=== PATIENT | female | born 1960 | race Hispanic/Latino ===

== ENCOUNTER → 2020-07-25 11:26 | Outpatient (CLI) | payer OTHER, SELFPAY ==
[2020-07-25 12:35] LABS: Creatinine Urine Random 109.5 mg/dL
[2020-07-25 12:40] LABS: Microalbumi Creatinin Ratio Ur 14.6 ug/mg CR (<30); Microalbumin Urine Random 1.6 mg/dL (0-1.6)
[2020-07-25 13:03] LABS: Hemoglobin A1C% w Est Avg Glu 6.3 % (4.0-6.0)
[2020-07-25 13:07] LABS: Alanine Aminotransferase 20 IU/L (<35); Albumin 4.6 g/dL (3.5-5.0); Albumin Globulin Ratio 1.1 (1.0-2.8); Alkaline Phosphatase 68 U/L (38-126); Aspartate Aminotransferase 28 IU/L (14-36); BUN Creatinine Ratio 16.8 (6-22); Bilirubin Total 0.5 mg/dL (0.2-1.3); Blood Urea Nitrogen 16 mg/dL (7-17); Calcium 9.7 mg/dL (8.4-10.2); Carbon Dioxide 30 mmol/L (22-32); Chloride 103 mmol/L (98-107); Cholesterol 302 mg/dL (140-199); Estimated Glomerular Filt Rate 59.8 mL/min (>60); Globulin 4.3 g/dL (1.7-4.1); Glucose 120 mg/dL (80-110); HDL Cholesterol 31 mg/dL (40-60); Potassium 4.1 mmol/L (3.4-5.1); Sodium 140 mmol/L (137-145); Total Protein 8.9 g/dL (6.3-8.2)
[2020-07-25 13:14] LABS: HEMOLYSIS 17 (0-50)
[2020-07-25 13:15] LABS: Triglycerides 996 mg/dL (35-150)
[2020-07-25 13:33] LABS: Free T4, Direct Thyroxine 1.42 ng/dL (0.78-2.19)
[2020-07-25 13:47] LABS: Thyroid Stimulating Hormone 0.949 uIU/mL (0.47-4.68)
== END ==
PROVIDERS: PCP Registered Nurse; Referring Provider Registered Nurse; Visit Provider Registered Nurse
DX: E11.9 Type 2 diabetes mellitus without complications (principal); E05.90 Thyrotoxicosis, unspecified without thyrotoxic crisis or storm; I10 Essential (primary) hypertension; Z83.42 Family history of familial hypercholesterolemia
CPT/HCPCS: 36415; 80053; 80061; 82043; 82570; 83036; 84439; 84443

== ENCOUNTER 2020-09-21 21:24 | Observation (INO) | payer OTHER, MEDICAID, SELFPAY ==
[2020-09-21] VITALS (9 sets, daily range): BP systolic 129–157; BP diastolic 61–87; PULSE 75–83; RESP 16–28; TEMP 36.8; O2SAT 97–99; BMI 36.2
--- NOTE | 2020-09-21 21:25 | ED_ITS ---
HPI - Chest Pain General Chief Complaint: Chest Pain Stated Complaint: chest pain, left side weakness Time Seen by Provider: 09/21/20 21:25 Source: patient and family Mode of arrival: Ambulatory Limitations: no limitations History of Present Illness HPI narrative: 60F nonsmoker with history of HTN and NIDDM presents with family and complaints of chest and back pain since yesterday. She's not a great historian. She has a difficult time describing the quality of pain, but in the end states the chest pain feels pinpoint and stabbing and her back is squeezing. She states both seem to worsen with deep breaths and motion. She has had some mild episodes of dizziness, which is not ongoing. She denies associated symptoms such as nausea, vomiting, diaphoresis. She denies any exertional component. She denies any change in her medications or diet. She states that she had an episode earlier in the day where she thinks maybe her left arm felt a bit tingly but denies any weakness. She denies any trouble with ambulation. She denies any recent trauma or injury. She has no fever with chills. She has had nail ch spenser in her bowel habits such as diarrhea or constipation. She denies any trouble controlling bowel or bladder, nor dysuria, frequency or urgency. She does state that she has [place] the storage [place] yesterday and was lifting heavy boxes complaint: chest pain Onset (ago): day(s) Duration: intermittent Onset: during rest Pain location: right chest Severity: mild Quality: sharp Pain radiation: none Relieving factors: rest and remaining still Exacerbating factors: inspiration Treatments prior to arrival chest pain: none Related Data On Oral Contraceptives: No Home Medications Medication Instructions Recorded Confirmed lancets 30 gauge #100 ea 07/22/20 07/22/20 Previous Rx's Medication Instructions Recorded amlodipine 5 mg tablet 5 mg PO DAILY 90 Days #90 tab 07/22/20 blood sugar diagnostic #50 ea 07/22/20 fenofibrate nanocrystallized 145 145 mg PO DAILY #90 tab 07/22/20 mg tablet hydrocortisone-pramoxine 1 %-1 % 1 applic WA QID PRN #30 g 07/22/20 rectal cream irbesartan 150 mg tablet 150 mg PO DAILY 90 Days #90 tab 07/22/20 linagliptin 5 mg tablet 5 mg PO DAILY #90 tab 07/22/20 carvedilol 3.125 mg tablet 3.125 mg PO BID 90 Days #180 tab 09/05/20 Allergies Allergy/AdvReac Type Severity Reaction Status Date / Time ampicillin Allergy Verified 07/22/20 11:41 bee venom protein (honey bee) Allergy Verified 07/22/20 11:41 cephalexin [Keflex] Allergy Verified 07/22/20 11:41 ibuprofen Allergy Verified 07/22/20 11:41 Penicillins Allergy Verified 07/22/20 11:41 Review of Systems Constitutional Constitutional: Denies chills, Denies fatigue, Denies fever(s), Denies frequent falls, Denies lethargy and Denies weakness Eyes Eyes: Denies change in vision, Denies eye discharge, Denies irritation and Denies loss of vision ENT Ears, Nose, Mouth, and Throat: Denies change in voice, Denies dizziness, Denies neck pain, Denies sore throat and Denies throat swelling Cardiovascular Cardiovascular: Reports chest pain, Denies irregular heart rhythm, Denies lightheadedness, Denies palpitations, Denies dyspnea, Denies dyspnea on exertion and Denies orthopnea Respiratory Respiratory: Denies cough, Denies dyspnea, Denies dyspnea on exertion and Denies wheezing Gastrointestinal Gastrointestinal: Denies abdominal pain, Denies change in bowel habits, Denies diarrhea, Denies nausea and Denies vomiting Musculoskeletal Musculoskeletal: Denies neck pain and Reports numbness Integumentary/Breasts Skin/Breast: Denies pruritus, Denies erythema, Denies rash and Denies wounds Neurologic Neurologic: Denies behavioral changes, Denies confusion, Denies dizziness, Denies frequent falls, Denies loss of vision, Reports numbness and Denies weakness Psychiatric Psychiatric: Denies anxiety, Denies behavioral changes, Denies confusion, Denies depression, Denies homicidal ideation and Denies suicidal ideation Endocrine Endocrine: Denies fatigue, Denies flushing and Denies palpitations Hematologic/Lymphatic Hematologic/Lymphatic: Denies easy bruising Allergic/Immunologic Allergic/Immunologic: Denies urticaria, Denies throat swelling and Denies wheezing Patient History Social History Smoking Status: Never smoker Smoking Status: Never smoker Exam Narrative Exam Narrative: GENERAL: [60] year old patient appears stated age. Well- nourished, well-developed patient, in mild distress. GCS 15 HEAD: Atraumatic. Normocephalic. EYES: Pupils equal round and reactive. Extraocular motions intact. No scleral icterus. No injection or drainage. ENT: Nose without bleeding, purulent drainage. Throat without erythema, tonsillar hypertrophy or exudate. Airway patent. NECK: Trachea midline. Mild tenderness in the paraspinal musculature on the left side. No increased pain with axial loading, no numbness or tingling in left arm with axial loading. CARDIOVASCULAR: Regular rate and rhythm without murmurs, gallops, or rubs. Palpation of anterior chest wall reproduces her chest pain RESPIRATORY: Clear to auscultation. Breath sounds equal bilaterally. No wheezes, rales, or rhonchi. GASTROINTESTINAL: Abdomen soft, non-tender, nondistended. EXTREMITIES: No edema or joint tenderness. BACK: No midline or bony tenderness, no step-offs or crepitance. Able to reproduce her back pain with palpation of the paraspinal musculature right of the midthoracic spine NEURO: AOx3. SKIN: No rash or erythema of visible areas Initial Vital Signs Initial Vital Signs: Vital Signs Temperature 98.2 F 09/21/20 21:39 Pulse Rate 83 09/21/20 21:39 Respiratory Rate 16 09/21/20 21:39 Blood Pressure 157/87 H 09/21/20 21:39 Pulse Oximetry 98 09/21/20 21:39 Scores NIH Stroke Scale Level of Conciousness: Alert, keenly responsive Ask month/age: Answers both questions correctly. Open/close eyes, close hand: Performs both tasks correctly Best gaze horizontal: Normal Visual colbert: No visual loss Facial palsy: Normal symetrical movement Left arm drift: No drift for full 10 sec Right arm drift: No drift for full 10 sec Left leg drift: No drift for full 5 sec Right leg drift: No drift for full 5 sec Limb ataxia: Absent Sensory on face/arms/legs: Mild to moderate sensory loss, can tell touch (Portions of left arm only) Best language: No aphasia, normal Dysarthria: Normal Extinction or inattention: No abnormality Total NIH Stroke scale score: 1 Course Orders Ordered: ED Orders 09/21/20 21:34 XR chest 1V Stat EKG-12 Lead Stat 09/21/20 21:37 Complete Blood Count AUTO DIFF Stat Comprehensive Metabolic Panel Stat D Dimer Stat Lipase Stat NT-proBNP (BNP-Adult 18+) Stat Prothrombin Time INR Stat Troponin & CK Cardiac Panel Stat 09/21/20 21:47 CT head/brain wo con Stat 09/21/20 22:29 CT angio chest abdomen pelvis Stat 09/21/20 23:00 EKG-12 Lead Stat 09/21/20 23:22 Urinalysis and Microscopic Stat Urine Drug Screen, Rapid Stat 09/21/20 23:35 COVID19 Stat Sodium Chloride (Normal Saline 0.9%) 1,000 mls @ 150 mls/hr IV CONT EVE Discontinued Medications Aspirin (Aspirin 81 Mg Chew Tab) 324 mg PO NOW ONE Stop: 09/21/20 21:35 Last Admin: 09/21/20 22:36 Dose: 324 mg Documented by: MAURICIO Diphenhydramine HCl (Diphenhydramine 50 Mg/Ml Vial) 25 mg IV NOW ONE Stop: 09/21/20 22:19 Last Admin: 09/21/20 22:36 Dose: 25 mg Documented by: MAURICIO Sodium Chloride (Normal Saline 0.9%) 1,000 mls @ 1,000 mls/hr IV BOLUS ONE Stop: 09/21/20 23:28 Last Admin: 09/21/20 22:36 Dose: 1,000 mls/hr Documented by: MAURICIO Methylprednisolone (Methylprednisolone 125 Mg/2 Ml Vial) 125 mg IV NOW ONE Stop: 09/21/20 22:19 Last Admin: 09/21/20 22:36 Dose: 125 mg Documented by: MAURICIO Vital Signs Vital signs: Vital Signs - 8 hr 09/21/20 21:39 09/21/20 21:44 09/21/20 22:02 Temperature 98.2 F Pulse Rate 83 83 81 Respiratory Rate 16 23 Blood Pressure 157/87 H Pulse Oximetry 98 98 98 09/21/20 22:03 09/21/20 22:30 09/21/20 22:31 Temperature Pulse Rate 79 79 80 Respiratory Rate 25 H 25 H 26 H Blood Pressure 132/62 129/71 Pulse Oximetry 98 97 98 09/21/20 23:00 09/21/20 23:23 09/21/20 23:30 Temperature Pulse Rate 76 75 75 Respiratory Rate 27 H 28 H 26 H Blood Pressure 143/76 H 131/61 Pulse Oximetry 99 99 99 09/22/20 00:00 09/22/20 00:01 09/22/20 00:12 Temperature Pulse Rate 76 72 83 Respiratory Rate 22 23 24 Blood Pressure 159/79 H 146/78 H Pulse Oximetry 99 100 99 MDM - Chest Pain Lab Data Result diagrams: 09/21/20 21:37 09/21/20 21:37 Labs: Lab Results 09/21/20 09/21/20 09/21/20 Range/Units 21:37 21:37 21:37 WBC 5.2 (4.5-11.0) X10^3/uL RBC 4.32 (4.0-5.2) X10^6/uL Hgb 12.6 (12.0-16.0) g/dL Hct 37.0 (36-46) % MCV 85.6 (80-100) fL MCH 29.2 (26-34) PG MCHC 34.0 (30-36) % RDW 13.4 (11.6-14.8) % Plt Count 331 (150-400) X10^3/uL Neut % (Auto) 34.9 L (50-75) % Lymph % (Auto) 48.9 H (25-40) % [place] % (Auto) 10.8 (3-14) % Eos % (Auto) 3.4 (2-4) % Baso % (Auto) 2.0 (0-2) % Neut # (Auto) 1800 (3434-8854) /uL Lymph # (Auto) 2600 (8492-9752) /uL [place] # (Auto) 600 (0-900) /uL Eos # (Auto) 200 (0-450) /uL Baso # (Auto) 100 (0-100) /uL PT 10.6 (10.1-12.7) SECONDS INR 0.9 (0.9-1.3) D-Dimer 592 H (<230) ng/mL Sodium 140 (137-145) mmol/L Potassium 3.8 (3.4-5.1) mmol/L Chloride 108 H (98-107) mmol/L Carbon Dioxide 27 (22-32) mmol/L BUN 20 H (7-17) mg/dL Creatinine 1.28 H (0.52-1.04) mg/dL Estimated GFR 42.3 L (>60) mL/min BUN/Creatinine Ratio 15.6 (6-22) Glucose 159 H (80-110) mg/dL Calcium 9.3 (8.4-10.2) mg/dL Total Bilirubin 0.2 (0.2-1.3) mg/dL AST 25 (14-36) IU/L ALT 23 (<35) IU/L Alkaline Phosphatase 57 (38-126) U/L Total Creatine Kinase 79 (30-135) U/L CK-MB (CK-2) TNP CK-MB (CK-2) Rel Index TNP Troponin I < 0.012 (0.01-0.034) ng/mL NT-Pro-B Natriuret Pep 33 (<125) pg/mL Total Protein 8.0 (6.3-8.2) g/dL Albumin 4.5 (3.5-5.0) g/dL Globulin 3.5 (1.7-4.1) g/dL Albumin/Globulin Ratio 1.3 (1.0-2.8) Lipase 280 (23-300) U/L U Opiates 300ng/mL cut (Negative) Ur Oxycodone Screen (Negative) Urine Methadone Screen (Negative) Ur Barbiturates Screen (Negative) U Tricyclic Antidepress (Negative) Ur Phencyclidine Scrn (Negative) Ur Amphetamines Screen (Negative) U Methamphetamines Scrn (Negative) Ur MDMA Scrn (Ecstasy) (Negative) U Benzodiazepines Scrn (Negative) Urine Cocaine Screen (Negative) U Marijuana (THC) Screen (Negative) SARS-CoV-2 (PCR) (Negative) 09/21/20 09/22/20 Range/Units 23:35 00:11 WBC (4.5-11.0) X10^3/uL RBC (4.0-5.2) X10^6/uL Hgb (12.0-16.0) g/dL Hct (36-46) % MCV (80-100) fL MCH (26-34) PG MCHC (30-36) % RDW (11.6-14.8) % Plt Count (150-400) X10^3/uL Neut % (Auto) (50-75) % Lymph % (Auto) (25-40) % [place] % (Auto) (3-14) % Eos % (Auto) (2-4) % Baso % (Auto) (0-2) % Neut # (Auto) (5138-7645) /uL Lymph # (Auto) (7153-3002) /uL [place] # (Auto) (0-900) /uL Eos # (Auto) (0-450) /uL Baso # (Auto) (0-100) /uL PT (10.1-12.7) SECONDS INR (0.9-1.3) D-Dimer (<230) ng/mL Sodium (137-145) mmol/L Potassium (3.4-5.1) mmol/L Chloride (98-107) mmol/L Carbon Dioxide (22-32) mmol/L BUN (7-17) mg/dL Creatinine (0.52-1.04) mg/dL Estimated GFR (>60) mL/min BUN/Creatinine Ratio (6-22) Glucose (80-110) mg/dL Calcium (8.4-10.2) mg/dL Total Bilirubin (0.2-1.3) mg/dL AST (14-36) IU/L ALT (<35) IU/L Alkaline Phosphatase (38-126) U/L Total Creatine Kinase (30-135) U/L CK-MB (CK-2) CK-MB (CK-2) Rel Index Troponin I (0.01-0.034) ng/mL NT-Pro-B Natriuret Pep (<125) pg/mL Total Protein (6.3-8.2) g/dL Albumin (3.5-5.0) g/dL Globulin (1.7-4.1) g/dL Albumin/Globulin Ratio (1.0-2.8) Lipase (23-300) U/L U Opiates 300ng/mL cut Negative (Negative) Ur Oxycodone Screen Negative (Negative) Urine Methadone Screen Negative (Negative) Ur Barbiturates Screen Negative (Negative) U Tricyclic Antidepress Negative (Negative) Ur Phencyclidine Scrn Negative (Negative) Ur Amphetamines Screen Negative (Negative) U Methamphetamines Scrn Negative (Negative) Ur MDMA Scrn (Ecstasy) Negative (Negative) U Benzodiazepines Scrn Negative (Negative) Urine Cocaine Screen Negative (Negative) U Marijuana (THC) Screen Negative (Negative) SARS-CoV-2 (PCR) Negative (Negative) Imaging Data CT scan - head: Radiologist's Impression: NAP CT scan - chest: Radiologist's Impression: CTA Chest/Abd/Pelvis No PE or Dissection ECG Data Attestation: I personally reviewed and interpreted this ECG as follows: Prior ECG tracings: not available for review Interpretation: Sinus arrhythmia, rate 86. Normal appearing WA, not measured due to some artifact, presumably why machine read as Afib. . No ST Segmental elevation or depression. Occasional PAC. No T wave abnormality MDM Narrative Medical decision making narrative: 60F HTN/DM with chest pain, back pain, dizziness, and L arm numbness. CTA to rule out dissection/PE given chest/back pain with neuro symptoms. No findings. She has vague dizziness which is without nystagmus or classic peripheral symptoms such as positional/fatigueable. She has risk for TIA/CVA and a central type dizziness with L arm numbness. She will require hospitalization for further evaluation with MRI and possible echo Discharge Plan Departure Patient Disposition: Admitted as Observation Clinical Impression: Brain TIA Chest pain Qualifiers: Chest pain type: chest pain on breathing Qualified Code(s): R07.1 - Chest pain on breathing Admit Date/Time: 09/22/20 00:28 Admit Provider: Allison Long
--- NOTE | 2020-09-21 21:34 | DI.RAD.S_ITS ---
PROCEDURE: XR CHEST 1V INDICATIONS: chest / back pain TECHNIQUE: One view of the chest was acquired. COMPARISON: [facility], CT, CT ANGIO CHEST ABDOMEN PELVIS, 09/21/2020, 22:52. FINDINGS: Surgical changes and devices: None. Lungs and pleura: Lungs are clear. No pleural effusions or pneumothorax. Mediastinum: Mediastinal contours appear normal. Heart size is normal. Bones and chest wall: No suspicious bony lesions. Overlying soft tissues appear unremarkable. IMPRESSION: No acute cardiopulmonary abnormality. This report is concordant with the overnight preliminary interpretation. Dictated by: Jose Alejandro Guevara M.D. on 09/22/2020 at 6:53 Approved by: Jose Alejandro Guevara M.D. on 09/22/2020 at 6:55
--- NOTE | 2020-09-21 21:47 | DI.CT.S_ITS ---
PROCEDURE: CT HEAD/BRAIN WO CON INDICATIONS: dizzy, left arm numbness TECHNIQUE: Noncontrast 4.5 mm thick angled axial sections acquired from the foramen magnum to the vertex, with coronal and sagittal reformats. For radiation dose reduction, the following was used: automated exposure control, adjustment of mA and/or kV according to patient size. COMPARISON: None. FINDINGS: Image quality: Excellent. CSF spaces: Basal cisterns are patent. No extra-axial fluid collections. Ventricles are normal in size and shape. Brain: No midline shift. No intracranial masses or hemorrhage. Smith-white matter interface is normal. Skull and face: Calvarium and visualized facial bones are intact, without suspicious lesions. Sinuses: Visualized sinuses and mastoids are clear. IMPRESSION: 1. No acute intracranial process. Dictated by: Orquidea Menjivar M.D. on 09/21/2020 at 22:02 Approved by: Orquidea Menjivar M.D. on 09/21/2020 at 22:02
[2020-09-21 22:14] LABS: Add Manual Diff / Slide Review NO; Basophils Absolute Auto 100 /uL (0-100); Eosinophils Absolute Auto 200 /uL (0-450); Eosinophils Percent Auto 3.4 % (2-4); Hemoglobin 12.6 g/dL (12.0-16.0); Lymphocytes Absolute Auto 2600 /uL (1100-4500); Lymphocytes Percent Auto 48.9 % (25-40); Mean Corpuscular Hemoglobin 29.2 PG (26-34); Mean Corpuscular Volume 85.6 fL (80-100); Monocytes Absolute Auto 600 /uL (0-900); Monocytes Percent Auto 10.8 % (3-14); Neutrophils Absolute Auto 1800 /uL (1500-7000); Neutrophils Percent Auto 34.9 % (50-75); Platelet Count 331 X10^3/uL (150-400); Red Blood Cell Count 4.32 X10^6/uL (4.0-5.2); Red Cell Distribution Width 13.4 % (11.6-14.8); White Blood Cell Count 5.2 X10^3/uL (4.5-11.0)
[2020-09-21 22:16] LABS: INR 0.9 (0.9-1.3); Prothrombin Time 10.6 SECONDS (10.1-12.7)
[2020-09-21 22:19] LABS: D Dimer 592 ng/mL (<230)
[2020-09-21 22:21] LABS: Alanine Aminotransferase 23 IU/L (<35); Albumin 4.5 g/dL (3.5-5.0); Albumin Globulin Ratio 1.3 (1.0-2.8); Alkaline Phosphatase 57 U/L (38-126); Aspartate Aminotransferase 25 IU/L (14-36); BUN Creatinine Ratio 15.6 (6-22); Bilirubin Total 0.2 mg/dL (0.2-1.3); Blood Urea Nitrogen 20 mg/dL (7-17); Calcium 9.3 mg/dL (8.4-10.2); Carbon Dioxide 27 mmol/L (22-32); Chloride 108 mmol/L (98-107); Creatine Kinase 79 U/L (30-135); Estimated Glomerular Filt Rate 42.3 mL/min (>60); Globulin 3.5 g/dL (1.7-4.1); Glucose 159 mg/dL (80-110); HEMOLYSIS < 15 (0-50); Lipase 280 U/L (23-300); Potassium 3.8 mmol/L (3.4-5.1); Sodium 140 mmol/L (137-145)
--- NOTE | 2020-09-21 22:29 | DI.CT.S_ITS ---
PROCEDURE: CT ANGIO CHEST ABDOMEN PELVIS INDICATIONS: chest, back pain, left arm tingling TECHNIQUE: Precontrast 5 mm thick sections acquired from the lung apices to the iliac crests. After the administration of intravenous contrast, 2.5 mm thick sections again acquired from the lung apices to the iliac crests. Maximum intensity projection (MIP) oblique sagittal and coronal reformats were then acquired. For radiation dose reduction, the following was used: automated exposure control. COMPARISON: None. FINDINGS: Image quality: Excellent. AORTA: No acute aortic syndrome. No dissection. No aneurysm. No central pulmonary embolism. CHEST: Lungs and pleura: No acute airspace opacities. No pleural effusions or pneumothorax. Central and peripheral airways are patent and normal in caliber. Mediastinum: Heart size is normal. Mild aortic valvular calcification. Mitral annular calcification. No pericardial effusion. No mediastinal or hilar adenopathy by size criteria. Central pulmonary arteries are normal in size. Esophagus is normal in caliber. No hiatal hernias. Bones and chest wall: No axillary alejandro plaque in the abdominal aorta. opathy by size criteria. Thyroid gland is unremarkable. No suspicious bony lesions. No vertebral body compression fractures. ABDOMEN: Vasculature: Mild calcified atherosclerotic plaque in the abdominal aorta. Celiac trunk and mesenteric arteries are patent. Renal arteries are duplicated bilaterally and patent. Solid organs: Liver is within normal limits in size. Hepatic steatosis. Gallbladder is unremarkable. Biliary system is non dilated. Pancreas enhances normally. Spleen is within normal limits. No adrenal nodules. Both kidneys are normal in size and enhancement, without hydronephrosis. Question of punctate nonobstructing left kidney stone, (). A few small simple cysts in the right kidney. Peritoneum and bowel: No free fluid or air. Food residue in the stomach. Stomach is not significantly distended. Bowel loops are normal in caliber and wall thickness. Normal appendix. Diverticulosis. Nodes and vessels: No retroperitoneal or mesenteric adenopathy by size criteria. Inferior vena cava is normal in morphology. Miscellaneous: No ventral hernias. PELVIS: Genitourinary: Bladder wall thickness is normal. Increased conspicuity of the endometrium. Question of uterine fibroids. Miscellaneous: No inguinal hernias or adenopathy. No ventral hernias. Bones: Sclerotic focus in the T6 vertebral body, (). Extensive degenerative change at L4-L5. No vertebral body compression fractures. IMPRESSION: 1. No acute aortic syndrome. No pulmonary embolism. 2. No acute airspace opacity. No pleural effusion. 3. No acute abnormality in the abdomen or pelvis identified. No free fluid. 4. Hepatic steatosis. 5. Increased conspicuity of the endometrium. This could be due to endometrial thickening in this postmenopausal patient. -Consider further evaluation with nonemergent pelvic ultrasound. 6. Sclerotic focus in the T6 vertebral body. Favor bone island over metastatic lesion. No significant discrepancy with the overnight preliminary interpretation. Dictated by: Jose Alejandro Guevara M.D. on 09/22/2020 at 6:55 Approved by: Jose Alejandro Guevara M.D. on 09/22/2020 at 7:15
[2020-09-21 22:33] LABS: NT-proBNP (BNP-Adult 18+) 33 pg/mL (<125); Troponin I < 0.012 ng/mL (0.01-0.034)
[2020-09-21] MEDS: diphenhydrAMINE 50 MG/ML VIAL 25 MG IV (22:36)
[2020-09-21] MEDS: ASPIRIN 81 MG CHEW TAB 324 MG PO (22:36)
[2020-09-21] MEDS: methylPREDNISolone 125 MG/2 ML VIAL IV (22:36)
[2020-09-21] MEDS: SODIUM CHLORIDE 0.9% 1,000 ML 1000 ML IV (22:36)
--- NOTE | 2020-09-21 22:49 | PC.NURSE ---
Pt reports remote history of reaction to IV contrast 40 years ago. Pt premedicated for CTA per order.
[2020-09-21 23:58] LABS: COVID19 -Nasal RAPID Negative (Negative)
[2020-09-22] VITALS (14 sets, daily range): BP systolic 123–159; BP diastolic 63–90; PULSE 72–102; RESP 15–24; TEMP 36.4; O2SAT 96–100; BMI 36.2
--- NOTE | 2020-09-22 | DI.MRI.S_ITS ---
PROCEDURE: MR STROKE Pre- and post-contrast brain MRI, non-contrast brain MR angiogram, pre- and postcontrast neck MR angiogram INDICATIONS: left arm numbness concernig for radiculopathy TECHNIQUE: Brain: Noncontrast axial T1 spin echo, axial T2 fast spin echo, sagittal and axial FLAIR, coronal T2 fast spin echo, axial gradient echo, axial diffusion and ADC through the brain. After the administration of contrast, axial 3D VIBE of the cranial vasculature and brain. Brain MRA: Non-contrast 3-D time of flight MR angiogram, with multiple ytpdpuj-yofmdktnk-nksghnzllb (MIP) reformats performed. Neck MRA: Axial and sagittal TruFISP through the neck. Coronal dynamic MR angiogram during administration of contrast in the arterial and venous phases, with 3-dimenstional qyoilum-ptoonarrx-uxleoaatik (MIP) reformats constructed from subtraction images. COMPARISON: [facility], CT, CT HEAD/BRAIN WO CON, 09/21/2020, 21:46. [facility], MR, MR CERVICAL SPINE WO CON, 09/22/2020, 9:35. FINDINGS: Image quality: This examination is limited by involuntary motion artifact. Study is also limited by bolus timing. Motion artifact can be seen on the neck MR angiogram images. BRAIN: CSF spaces: Ventricles are normal in size and shape. Basal cisterns are patent. No extra-axial fluid collections. Brain: No intracranial bleeds or mass effects. Brain parenchymal volume loss is seen. Chronic small vessel ischemic changes are seen. Smith-white matter interface is normal. Diffusion weighted images show no acute ischemic insults. Brainstem appears normal. Normal intravascular flow voids are present. No abnormal intracranial enhancement. Skull and face: Calvarial marrow signal is normal. Orbits appear normal. Incidental note is made of hyperostosis frontalis. This is not considered to be pathologic in a woman of this age. Sinuses: Sinuses and mastoids are clear. BRAIN MR ANGIOGRAM: Anterior circulation: Intracranial internal carotid arteries are normal in size and enhancement. 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 This is considered to be a normal developmental variant of the [place] of [place], of typically no clinical consequence. The flow within the paired anterior cerebral arteries is otherwise normal and symmetric. The flow within the middle cerebral arteries is normal and symmetric. The anterior communicating artery is seen. No stenoses, occlusions, or aneurysms. Posterior circulation: The visualized portions of the vertebral arteries demonstrate normal caliber, and join to form a normal appearing basilar artery. The flow within the posterior cerebral arteries is normal and symmetric. No stenoses, occlusions, or aneurysms. NECK MR ANGIOGRAM: Carotids: Great vessels demonstrate a conventional anatomy as they arise from the aortic arch. The origins of the common carotid arteries appear patent. The calibers and courses of both common carotid arteries are normal. The bifurcation regions appear normal bilaterally. The internal carotid arteries demonstrate normal course and caliber. Posterior circulation: The origins of the vertebral arteries are not well seen. More superior portions of both vertebral arteries demonstrate normal course and caliber. Miscellaneous: Subclavian arteries appear patent. Pre-contrast images through the neck show no soft tissue abnormalities. IMPRESSION: BRAIN MRI: No findings of acute or subacute infarction can be seen. Note is made of age-appropriate brain parenchymal volume loss and chronic small vessel ischemic changes. No masses or abnormal enhancement can be seen. BRAIN MR ANGIOGRAM: No significant intracranial arterial abnormality is seen. 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 NECK MR ANGIOGRAM: Limited study of the neck, yet without a hemodynamically significant stenosis seen. Dictated by: Sulaiman Hill M.D. on 09/22/2020 at 10:00 Approved by: Sulaiman Hlil M.D. on 09/22/2020 at 10:03
--- NOTE | 2020-09-22 | DI.MRI.S_ITS ---
PROCEDURE: MR CERVICAL SPINE WO CON INDICATIONS: left arm numbness concerning for radiculopathy TECHNIQUE: Noncontrast sagittal T1 spin echo and T2 fast spin echo, sagittal STIR, foraminal oblique sagittal T2 fast spin echo, and axial gradient echo or T2 fast spin echo through the cervical spine. COMPARISON: [facility], CT, CT HEAD/BRAIN WO CON, 09/21/2020, 21:46. FINDINGS: Image quality: This examination is limited by involuntary motion artifact. Alignment and Curvature: There is straightening of the normal cervical lordosis. Bone Marrow: Marrow demonstrates normal overall signal. Spinal Cord: Visualized spinal cord has normal size and signal. No cerebellar tonsillar herniation. Paraspinous Soft Tissues: No paravertebral masses. Prevertebral soft tissues are normal in thickness. C2-C3: This examination is limited by involuntary motion artifact. Mild disc bulge is seen, with a central/right disc protrusion. There is moderate to prominent right-sided and moderate left-sided facet hypertrophy. There is at least moderate left-sided and [id number] right-sided neural foraminal narrowing seen. Moderate central canal narrowing is seen. C3-C4: There is at least moderate loss of disc height and disc signal seen. Moderate to prominent disc osteophyte complex is seen, with a prominent disc osteophyte extrusion, as on series 4, image 16 and on series 3 image 8. Moderate facet joint hypertrophy is seen. There is moderate to severe bilateral neural foraminal narrowing seen. Moderate to severe central canal narrowing is seen, with associated ventral cord flattening. C4-C5: Mild loss of disc height is seen. Loss of disc signal is seen. Moderate generalized disc osteophyte complex is seen. There is moderate right-sided and mild left-sided facet hypertrophy seen. There is moderate to severe bilateral neural foraminal narrowing seen. At least moderate central canal narrowing is seen. There is associated mass effect upon the ventral spinal cord. C5-C6: Raqg-ce-sibztpvl loss of disc height and disc signal can be seen. Moderate prominent disc osteophyte complex is seen, with a prominent central/left disc osteophyte extrusion, with inferior migration of the disc material. Mild facet joint hypertrophy is seen. Moderate to severe bilateral neural foraminal narrowing can be seen. There is severe central canal narrowing, with associated ventral cord flattening, as on series 4, images 24 and 25. C6-C7: Moderate loss of disc height is seen. Loss of disc signal is seen. There is at least moderate disc osteophyte complex seen. There is a central/left disc osteophyte protrusion. Mild to moderate facet hypertrophy is seen. There is moderate to severe left-sided and at least moderate right-sided neural foraminal narrowing. There is at least moderate central canal narrowing. There is associated mass effect upon the ventral spinal cord. C7-T1: The disc height is well-preserved. Loss of disc signal is seen at this level. Moderate generalized disc osteophyte complex is seen. There is at least moderate left-sided and [id number]-apkvppin right-sided neural foraminal narrowing seen. Mild to moderate central canal narrowing is seen. IMPRESSION: Multiple levels of prominent cervical spine degenerative changes are seen. There is a C5-C6 disc extrusion, with inferior migration of the disc material. Several levels of prominent central canal narrowing can be seen, with ventral cord flattening. Dictated by: Sulaiman Hill M.D. on 09/22/2020 at 9:15 Approved by: Sulaiman Hill M.D. on 09/22/2020 at 9:25
[2020-09-22 00:17] LABS: Bacteria Urine None Seen; RBC Urine None Seen (0-5/HPF); WBC Urine None Seen (0-5/HPF)
--- NOTE | 2020-09-22 00:22 | PC.NURSE ---
Pt assisted to BR via WC; ambulated back to room with stand by assist.
[2020-09-22 00:25] LABS: UR Morphine/Opiate cutoff 300 Negative (Negative); Ur Creatinine 20 (Normal); Ur Specific Gravity 1.025 (Normal); Urine Amphetamines Negative (Negative); Urine Barbiturates Negative (Negative); Urine Benzodiazepines Negative (Negative); Urine Cocaine Negative (Negative); Urine MDMA Negative (Negative); Urine Methadone Negative (Negative); Urine Methamphetamines Negative (Negative); Urine Oxycodone Negative (Negative); Urine Phencyclidine Negative (Negative); Urine Tetrahydrocannabinol Negative (Negative); Urine Tricyclic Antidepressant Negative (Negative); Urine pH 5 (Normal)
[2020-09-22 00:35] LABS: Appearance Urine UA CLEAR; Bilirubin Urine UA NEGATIVE (NEGATIVE); Color Urine UA YELLOW; Glucose Urine UA NEGATIVE (Negative); Ketones Urine UA NEGATIVE (NEGATIVE); Leukocyte Esterase Urine UA NEGATIVE (NEGATIVE); Nitrite Urine UA NEGATIVE (Negative); Occult Blood Urine UA NEGATIVE (Negative); Protein Urine UA NEGATIVE (Negative); Specific Gravity Urine UA 1.015 (1.000-1.035); Urobilinogen Urine UA 0.2 E.U./dL (0.2)
[2020-09-22 00:39] LABS: Culture Indicated Urine Cult Not Indicated; Urine Comments Microscopic Normal
--- NOTE | 2020-09-22 00:43 | PC.NURSE ---
Report given to Diamante, 2nd floor RN
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
[2020-09-22 01:49] LABS: Magnesium 1.8 mg/dL (1.6-2.3)
--- NOTE | 2020-09-22 03:09 | PC.NURSE ---
Admitted to room 218 R/O TIA, pt. alert & oriented x4. NO C/O lt. hand numbness, no dizziness, no C/O headache. Oriented to her room, showed her how to use her call light, TV & bed controls. Instructed not to get OOB without any assistance, denies any fall for the past 3 months. Call light within reach, will cont. POC & monitor.
[2020-09-22 03:37] LABS: Hemoglobin A1C% w Est Avg Glu 6.5 % (4.0-6.0)
[2020-09-22 04:00] LABS: BUN Creatinine Ratio 17.6 (6-22); Blood Urea Nitrogen 19 mg/dL (7-17); Calcium 9.2 mg/dL (8.4-10.2); Carbon Dioxide 26 mmol/L (22-32); Chloride 107 mmol/L (98-107); Estimated Glomerular Filt Rate 51.4 mL/min (>60); Glucose 228 mg/dL (80-110); HEMOLYSIS < 15 (0-50); Potassium 4.4 mmol/L (3.4-5.1); Sodium 137 mmol/L (137-145)
[2020-09-22 04:03] LABS: Add Manual Diff / Slide Review NO; Basophils Absolute Auto 0 /uL (0-100); Basophils Percent Auto 0.9 % (0-2); Eosinophils Absolute Auto 0 /uL (0-450); Eosinophils Percent Auto 0.2 % (2-4); Hematocrit 35.7 % (36-46); Hemoglobin 11.9 g/dL (12.0-16.0); Lymphocytes Absolute Auto 1200 /uL (1100-4500); Lymphocytes Percent Auto 24.8 % (25-40); Mean Corpuscular HGB Conc 33.4 % (30-36); Mean Corpuscular Hemoglobin 28.8 PG (26-34); Mean Corpuscular Volume 86.2 fL (80-100); Monocytes Absolute Auto 100 /uL (0-900); Monocytes Percent Auto 1.2 % (3-14); Neutrophils Absolute Auto 3600 /uL (1500-7000); Neutrophils Percent Auto 72.9 % (50-75); Platelet Count 305 X10^3/uL (150-400); Red Blood Cell Count 4.14 X10^6/uL (4.0-5.2); Red Cell Distribution Width 13.2 % (11.6-14.8); White Blood Cell Count 4.9 X10^3/uL (4.5-11.0)
[2020-09-22 04:11] LABS: Troponin I < 0.012 ng/mL (0.01-0.034)
[2020-09-22] MEDS: INSULIN ASPART 100 UNIT/ML INSULN PEN SUBCUT ×2 (09:24→12:16)
[2020-09-22] MEDS: AMLODIPINE 5 MG TABLET PO (09:25)
[2020-09-22] MEDS: carvediloL 3.125 MG TABLET PO (09:26)
[2020-09-22] MEDS: ASPIRIN EC 81 MG TABLET PO (09:26)
[2020-09-22] MEDS: FENOFIBRATE 145 MG TABLET PO (09:28)
[2020-09-22] MEDS: ENOXAPARIN 40 MG/0.4 ML SYRINGE SUBCUT (09:28)
[2020-09-22] MEDS: IRBESARTAN 150 MG TABLET PO (09:29)
[2020-09-22] MEDS: SODIUM CHLORIDE 0.9% FLUSH 10 ML IV (09:29)
--- NOTE | 2020-09-22 09:50 | PC.NURSE ---
Patient A/O x4, denies numbness or tingling in the extremities, denies SOB or chest pain. Reports headache, usually managed with aspirin which was given. Tele on, patient is tachy, pulses equal patient voiding independently in the restroom, reports last BM was 09/21, denies N/V. Patient transferred to MRI via wheelchair at 0940
--- NOTE | 2020-09-22 10:29 | CM.DANOTE ---
Addendum entered by Jennifer Moore 09/22/20 10:47: Patient reports that she drives and does not utilize DME at baseline. Original Note: DCP Assessment: 60yo female admitted to hospital for chest pain and left sided weakness, PCP is Jossy Ackerman. Primary payer sources is [facility]. CUTTING AND BONING SUPERVISOR and Student met with patient in room. Patient is alert and oriented and has a prior history of independence with ADL's. She does have local support system as her 4 sons live in the local geographic area. She reported that will be able to return to living with family with future plans to seek other housing options in the [facility] as her current housing situation is safe but not ideal. Will provide patient with Senior resource guide and listings of supported living facilities in the [facility]. Recommended D/C to home with family. P: Home when medically stable CM team will continue to follow for needs. Juan Gray (CUTTING AND BONING SUPERVISOR Student) Jennifer Moore (CUTTING AND BONING SUPERVISOR) Discharge Planning/Care Management CM Discharge Assessment Start: 09/22/20 10:18 Freq: Status: Active Protocol: Document 09/22/20 10:21 KJS (Rec: 09/22/20 10:28 [id number]) Discharge Planning Assessment Assigned Finish Opener Juan Gray CUTTING AND BONING SUPERVISOR Student Contact Information [place] (Son) Phone# Advance Directives? No Advance Directives on File No History Provided By Patient,Medical Record Has Patient been admitted in last 30 No days? Prior Living Arrangements Apartment/Condo Household Members children Type of transporation used prior to Drives own vehicle admit Independent with ADL's Yes Is patient alert and oriented? Yes Barriers to Discharge No Discharge Plan Home Transportation Arrangement Son will provide transportation Additional Comment Provided information for housing options in the [facility] and senior resources guide Review Status In Process Next Review Type Continued Stay Review Document 09/22/20 10:29 KJS (Rec: 09/22/20 10:29 [id number]) Discharge Planning Assessment Assigned Finish Opener Juan Gray CUTTING AND BONING SUPERVISOR Student Contact Information [place] (Son) Phone# ( [phone] Advance Directives? No Advance Directives on File No History Provided By Patient,Medical Record Has Patient been admitted in last 30 No days? Prior Living Arrangements Apartment/Condo Household Members children Type of transporation used prior to Drives own vehicle admit Willing to Return to Facility? No Independent with ADL's Yes Is patient alert and oriented? Yes Barriers to Discharge No Discharge Plan Home Transportation Arrangement Son will provide transportation Additional Comment Provided information for housing options in the [facility] and senior resources guide Review Status In Process Next Review Type Continued Stay Review
[2020-09-22 12:01] LABS: Troponin I < 0.012 ng/mL (0.01-0.034)
[2020-09-22] MEDS: INFLUENZA VACCINE 0.5 ML SYRINGE IM (14:59)
--- NOTE | 2020-09-22 16:17 | PC.NURSE ---
Evening Shift/Discharge Note- Patient d/c'ed home. Discharge instructions and educations reviewed with patient and signed. IV line removed and bandage applied. Tele monitor removed. Patient dressed self and packed up all personal belongings. Patient left via wheelchair with all personal belongings and son at her side to CDP car at 1619.
== END 2020-09-22 16:19 | disposition home or self-care (01) ==
LOC: ED 09-22 00:27 → AC 09-22 00:29
PROVIDERS: Admitting Provider Nurse Practitioner Family; Emergency Provider Emergency Medicine; PCP Registered Nurse; Referring Provider Emergency Medicine; Visit Provider Nurse Practitioner Family
DX: R07.9 Chest pain, unspecified (principal); R53.1 Weakness; R42 Dizziness and giddiness; M54.9 Dorsalgia, unspecified; I10 Essential (primary) hypertension; E78.5 Hyperlipidemia, unspecified; E78.1 Pure hyperglyceridemia; E11.9 Type 2 diabetes mellitus without complications; Z79.84 Long term (current) use of oral hypoglycemic drugs; G47.30 Sleep apnea, unspecified; Z20.822 Contact with and (suspected) exposure to COVID-19
CPT/HCPCS: 36415; 70450; 70548; 70553; 71045; 71275; 72141; 74174; 80048; 80053; 80305; 81001; 82550; 82962; 83036; 83690; 83735; 83880; 84484; 85025; 85379; 85610; 87635; 90471; 90656; 93005; 93010; 94762; 96361; 96372; 96374; 96375; 99283; 99284; 99291; 99292; C9803; G0378; J1200; J1650; J2930; Q2038; Q9967

== ENCOUNTER → 2020-09-23 12:33 | Outpatient (CLI) | payer OTHER, MEDICAID, SELFPAY ==
[2020-09-22 01:22] VITALS: BMI 36.2
== END ==
PROVIDERS: PCP Registered Nurse; Referring Provider Registered Nurse; Visit Provider Registered Nurse
DX: M85.852 Other specified disorders of bone density and structure, left thigh (principal); Z78.0 Asymptomatic menopausal state
CPT/HCPCS: 77080

== ENCOUNTER → 2020-10-07 09:59 | Outpatient (CLI) | payer OTHER, MEDICAID, SELFPAY ==
[2020-09-30 11:05] VITALS: BMI 36.2
--- NOTE | 2020-10-07 10:00 | DI.US.S_ITS ---
PROCEDURE: US PELVIC COMPLETE INDICATIONS: THICKENED ENDOMETRIUM TECHNIQUE: Real-time scanning was performed of the pelvic organs, with image documentation. Additional endovaginal scanning was necessary due to incomplete visualization of the adnexal and endometrial structures by transabdominal scanning. COMPARISON: [facility], CT, CT ANGIO CHEST ABDOMEN PELVIS, 09/21/2020, 22:52. FINDINGS: Uterus: Uterus is normal in size at 7.6 by 5.8 x 6 x 3 cm. The endometrium measures 27 mm in combined thickness. The uterus demonstrates a heterogeneous appearance, with cystic spaces. No jason abnormal vascularity can be seen. Ovaries: The right ovary measures 1.7 x 1.5 x 1.7 cm and is overall not well seen. The left ovary is not well seen. No adnexal masses are seen on either side. Other: No pathologic free abdominal or pelvic fluid. IMPRESSION: The endometrial stripe is grossly thickened at 27 mm in this patient with a given history of postmenopausal bleeding. Differential diagnosis includes endometrial neoplasm and endometrial hyperplasia. Recommend correlation with endometrial histology, as clinically appropriate. Dictated by: Sulaiman Hill M.D. on 10/07/2020 at 9:40 Approved by: Sulaiman Hill M.D. on 10/07/2020 at 9:48
== END ==
PROVIDERS: PCP Registered Nurse; Referring Provider Registered Nurse; Visit Provider Registered Nurse
DX: R93.89 Abnormal findings on diagnostic imaging of other specified body structures (principal); N95.0 Postmenopausal bleeding
CPT/HCPCS: 76830; 76856

== ENCOUNTER → 2020-12-03 14:53 | Outpatient (CLI) | payer OTHER, MEDICAID, SELFPAY ==
[2020-09-30 11:05] VITALS: BMI 36.2
--- NOTE | 2020-12-03 14:55 | DI.RAD.S_ITS ---
PROCEDURE: XR FOOT LT MIN 3V INDICATIONS: painful joints and swelling TECHNIQUE: 3 views of the foot were acquired. COMPARISON: None. FINDINGS: Bones: No fractures or dislocations. Hallux valgus deformity noted. Large dorsal and plantar calcaneal bone spurs. Moderate midfoot osteoarthritis. Moderate 1st MCP joint osteoarthritis. No osseous erosive changes or periosteal reaction. Soft tissues: Large medial bunion noted with heterotopic calcifications.. No tibiotalar joint effusion. Achilles tendon appears normal. Foot soft tissue swelling noted. No soft tissue gas. IMPRESSION: 1. Hallux valgus deformity. 2. Large medial bunion. 3. Osteoarthritis. 4. No jason evidence of osteomyelitis. Plain film radiographs can be insensitive to osteomyelitis during the initial 15 days of the disease process. If there is clinical concern for osteomyelitis, then three-phase nuclear medicine bone scan should be considered for further evaluation. Dictated by: Karon Esquivel MD, PhD on 12/03/2020 at 17:58 Approved by: Karon Esquivel MD, PhD on 12/03/2020 at 18:00
--- NOTE | 2020-12-03 14:55 | DI.RAD.S_ITS ---
PROCEDURE: XR FOOT RT MIN 3V INDICATIONS: painful joints and swelling TECHNIQUE: 3 views of the foot were acquired. COMPARISON: [facility], CR, XR FOOT 3 VIEWS WEIGHT BEARING LEFT, 11/13/2020, 14:36. FINDINGS: Bones: No fractures or dislocations. No suspicious bony lesions. Moderate hallux valgus metatarsus prima varus alignment and medial bunion. Moderate 1st MTP and diffuse interphalangeal joint space narrowing with periarticular osteophytosis. Well corticated osseous density adjacent to the medial aspect of the 1st metatarsal head which has a chronic appearance. Large posterior and to 6 lesser degree plantar calcaneal enthesophytes. Soft tissues: No tibiotalar joint effusion. Achilles tendon appears normal. IMPRESSION: 1. Hallux valgus alignment and medial bunion. 2. 1st MTP and diffuse interphalangeal joint degeneration. 3. Calcaneal enthesopathy. Dictated by: Anjum MIXON Interpreted: Amish Lubin MD on 12/03/2020 at 17:40 Approved by: Amish Lubin M.D. on 12/04/2020 at 15:24
[2020-12-03 15:31] LABS: Add Manual Diff / Slide Review NO; Basophils Absolute Auto 0 /uL (0-100); Basophils Percent Auto 0.4 % (0-2); Eosinophils Absolute Auto 200 /uL (0-450); Eosinophils Percent Auto 3.3 % (2-4); Hematocrit 36.5 % (36-46); Hemoglobin 12.3 g/dL (12.0-16.0); Lymphocytes Absolute Auto 2500 /uL (1100-4500); Lymphocytes Percent Auto 38.6 % (25-40); Mean Corpuscular HGB Conc 33.7 % (30-36); Mean Corpuscular Volume 86.1 fL (80-100); Monocytes Absolute Auto 600 /uL (0-900); Monocytes Percent Auto 9.7 % (3-14); Neutrophils Absolute Auto 3100 /uL (1500-7000); Platelet Count 335 X10^3/uL (150-400); Red Blood Cell Count 4.24 X10^6/uL (4.0-5.2); Red Cell Distribution Width 13.3 % (11.6-14.8); White Blood Cell Count 6.4 X10^3/uL (4.5-11.0)
[2020-12-03 15:48] LABS: Alanine Aminotransferase 23 IU/L (<35); Albumin 4.8 g/dL (3.5-5.0); Albumin Globulin Ratio 1.2 (1.0-2.8); Alkaline Phosphatase 54 U/L (38-126); Aspartate Aminotransferase 30 IU/L (14-36); BUN Creatinine Ratio 24.5 (6-22); Bilirubin Total 0.3 mg/dL (0.2-1.3); Blood Urea Nitrogen 25 mg/dL (7-17); Calcium 10.8 mg/dL (8.4-10.2); Carbon Dioxide 27 mmol/L (22-32); Chloride 107 mmol/L (98-107); Estimated Glomerular Filt Rate 54.9 mL/min (>60); Globulin 3.9 g/dL (1.7-4.1); Glucose 124 mg/dL (80-110); HEMOLYSIS < 15 (0-50); Sodium 142 mmol/L (137-145); Total Protein 8.7 g/dL (6.3-8.2); Uric Acid 7.2 mg/dL (2.5-6.2)
[2020-12-03 15:49] LABS: Potassium 4.4 mmol/L (3.4-5.1)
[2020-12-03 16:00] LABS: Rheumatoid Factor < 8.6 IU/mL (<12.0)
[2020-12-03 16:36] LABS: Vitamin B12 755 pg/mL (239-931)
[2020-12-03 16:40] LABS: Free T4, Direct Thyroxine 1.53 ng/dL (0.78-2.19)
[2020-12-03 16:54] LABS: Thyroid Stimulating Hormone 0.054 uIU/mL (0.47-4.68)
== END ==
PROVIDERS: PCP Registered Nurse; Referring Provider Registered Nurse; Visit Provider Registered Nurse
DX: M25.50 Pain in unspecified joint (principal); R53.83 Other fatigue; R20.0 Anesthesia of skin; R20.2 Paresthesia of skin; E05.90 Thyrotoxicosis, unspecified without thyrotoxic crisis or storm; M25.40 Effusion, unspecified joint
CPT/HCPCS: 36415; 73630; 80053; 82607; 84439; 84443; 84550; 85025; 86430

== ENCOUNTER → 2021-02-10 10:36 | Outpatient (CLI) | payer OTHER, MEDICAID, SELFPAY ==
[2020-09-30 11:05] VITALS: BMI 36.2
[2021-02-10 11:16] LABS: Hemoglobin A1C% w Est Avg Glu 6.7 % (4.0-6.0)
[2021-02-10 11:26] LABS: Alanine Aminotransferase 25 IU/L (<35); Albumin 4.7 g/dL (3.5-5.0); Albumin Globulin Ratio 1.3 (1.0-2.8); Alkaline Phosphatase 54 U/L (38-126); Aspartate Aminotransferase 33 IU/L (14-36); BUN Creatinine Ratio 16.3 (6-22); Bilirubin Total 0.4 mg/dL (0.2-1.3); Blood Urea Nitrogen 17 mg/dL (7-17); Calcium 10.4 mg/dL (8.4-10.2); Carbon Dioxide 25 mmol/L (22-32); Chloride 106 mmol/L (98-107); Cholesterol 223 mg/dL (140-199); Creatinine Urine Random 59.4 mg/dL; Estimated Glomerular Filt Rate 53.7 mL/min (>60); Globulin 3.7 g/dL (1.7-4.1); Glucose 123 mg/dL (80-110); HDL Cholesterol 48 mg/dL (40-60); HEMOLYSIS < 15 (0-50); Potassium 4.5 mmol/L (3.4-5.1); Sodium 140 mmol/L (137-145); Total Protein 8.4 g/dL (6.3-8.2); Triglycerides 424 mg/dL (35-150)
[2021-02-10 11:30] LABS: Microalbumi Creatinin Ratio Ur 13.4 ug/mg CR (<30); Microalbumin Urine Random 0.8 mg/dL (0-1.6)
[2021-02-10 11:54] LABS: Thyroid Stimulating Hormone 0.108 uIU/mL (0.47-4.68)
[2021-02-10 16:21] LABS: Add Manual Diff / Slide Review NO; Basophils Absolute Auto 100 /uL (0-100); Basophils Percent Auto 1.8 % (0-2); Eosinophils Absolute Auto 200 /uL (0-450); Hematocrit 36.7 % (36-46); Hemoglobin 12.4 g/dL (12.0-16.0); Lymphocytes Absolute Auto 2200 /uL (1100-4500); Lymphocytes Percent Auto 39.5 % (25-40); Mean Corpuscular HGB Conc 33.8 % (30-36); Mean Corpuscular Hemoglobin 28.8 PG (26-34); Mean Corpuscular Volume 85.1 fL (80-100); Monocytes Absolute Auto 500 /uL (0-900); Monocytes Percent Auto 9.1 % (3-14); Neutrophils Absolute Auto 2600 /uL (1500-7000); Neutrophils Percent Auto 46.6 % (50-75); Platelet Count 293 X10^3/uL (150-400); Red Blood Cell Count 4.32 X10^6/uL (4.0-5.2); Red Cell Distribution Width 13.2 % (11.6-14.8); White Blood Cell Count 5.6 X10^3/uL (4.5-11.0)
== END ==
PROVIDERS: PCP Registered Nurse; Referring Provider Registered Nurse; Visit Provider Registered Nurse
DX: Z01.818 Encounter for other preprocedural examination (principal); E11.9 Type 2 diabetes mellitus without complications; E78.2 Mixed hyperlipidemia; I10 Essential (primary) hypertension
CPT/HCPCS: 36415; 80053; 80061; 82043; 82570; 83036; 84443; 85025

== ENCOUNTER → 2021-02-12 11:40 | Outpatient (CLI) | payer OTHER, MEDICAID, SELFPAY ==
[2020-09-30 11:05] VITALS: BMI 36.2
== END ==
PROVIDERS: PCP Registered Nurse; Referring Provider Registered Nurse; Visit Provider Registered Nurse
DX: E05.90 Thyrotoxicosis, unspecified without thyrotoxic crisis or storm (principal)
CPT/HCPCS: 36415; 84439; 84481

== ENCOUNTER → 2021-05-13 14:03 | Outpatient (CLI) | payer OTHER, MEDICAID, SELFPAY ==
[2020-09-30 11:05] VITALS: BMI 36.2
[2021-05-13 14:41] LABS: Alanine Aminotransferase 25 IU/L (<35); Albumin 4.6 g/dL (3.5-5.0); Albumin Globulin Ratio 1.5 (1.0-2.8); Alkaline Phosphatase 50 U/L (38-126); Aspartate Aminotransferase 29 IU/L (14-36); BUN Creatinine Ratio 18.6 (6-22); Bilirubin Total 0.3 mg/dL (0.2-1.3); Blood Urea Nitrogen 19 mg/dL (7-17); Calcium 9.7 mg/dL (8.4-10.2); Carbon Dioxide 26 mmol/L (22-32); Chloride 107 mmol/L (98-107); Estimated Glomerular Filt Rate 54.9 mL/min (>60); Globulin 3.1 g/dL (1.7-4.1); Glucose 196 mg/dL (80-110); HEMOLYSIS < 15 (0-50); Sodium 140 mmol/L (137-145); Total Protein 7.7 g/dL (6.3-8.2)
[2021-05-13 14:42] LABS: Hemoglobin A1C% w Est Avg Glu 6.9 % (4.0-6.0)
[2021-05-13 15:11] LABS: Thyroid Stimulating Hormone 0.071 uIU/mL (0.47-4.68)
[2021-05-13 16:01] LABS: Creatinine Urine Random 40.2 mg/dL
[2021-05-13 16:06] LABS: Microalbumi Creatinin Ratio Ur 32.3 ug/mg CR (<30); Microalbumin Urine Random 1.3 mg/dL (0-1.6)
== END ==
PROVIDERS: PCP Registered Nurse; Referring Provider Registered Nurse; Visit Provider Registered Nurse
DX: N18.30 Chronic kidney disease, stage 3 unspecified (principal); E11.9 Type 2 diabetes mellitus without complications; E05.90 Thyrotoxicosis, unspecified without thyrotoxic crisis or storm
CPT/HCPCS: 36415; 80053; 82043; 82570; 83036; 84443